=== PATIENT | male | born 1965 | race Caucasian/White ===

== ENCOUNTER 2022-03-29 15:41 | Emergency (ER) | payer OTHER ==
[2022-03-29 16:40] VITALS: BP 135/87; PULSE 108; TEMP 97.9; BMI 34.9
== END 2022-03-29 17:32 | disposition home or self-care (01) ==
LOC: JER 15:41
DX: M54.2 Cervicalgia (principal); V49.40XA Driver injured in collision with unspecified motor vehicles in traffic accident, initial encounter
CPT/HCPCS: 99283-25

== ENCOUNTER 2023-12-01 04:40 | Day surgery (SDC) | payer OTHER ==
[2023-11-26 14:29] VITALS: BMI 34.2
[2023-12-01 08:59] VITALS: TEMP 98.2
[2023-12-01 09:41] VITALS: BP 105/61; PULSE 89; RESP 20
== END 2023-12-01 09:55 | disposition home or self-care (01) ==
LOC: JASU-ENDO 04:40
PROVIDERS: ATTEND Internal Medicine Gastroenterology
PROC: 0DB98ZX Excision of Duodenum, Via Natural or Artificial Opening Endoscopic, Diagnostic (ICD-10-PCS; 2023-12-01)
PROC: 0DB78ZX Excision of Stomach, Pylorus, Via Natural or Artificial Opening Endoscopic, Diagnostic (ICD-10-PCS; 2023-12-01)
PROC: 0DB68ZX Excision of Stomach, Via Natural or Artificial Opening Endoscopic, Diagnostic (ICD-10-PCS; 2023-12-01)
PROC: 0DB28ZX Excision of Middle Esophagus, Via Natural or Artificial Opening Endoscopic, Diagnostic (ICD-10-PCS; 2023-12-01)
PROC: 0DB48ZX Excision of Esophagogastric Junction, Via Natural or Artificial Opening Endoscopic, Diagnostic (ICD-10-PCS; 2023-12-01)
PROC: 0DJD8ZZ Inspection of Lower Intestinal Tract, Via Natural or Artificial Opening Endoscopic (ICD-10-PCS; principal; 2023-12-01 08:00)
DX: Z12.11 Encounter for screening for malignant neoplasm of colon (principal); K64.8 Other hemorrhoids; K57.30 Diverticulosis of large intestine without perforation or abscess without bleeding; K21.00 Gastro-esophageal reflux disease with esophagitis, without bleeding; K29.50 Unspecified chronic gastritis without bleeding; Z83.710 Family history of adenomatous and serrated polyps
CPT/HCPCS: 88305-TC; 88342-TC